=== PATIENT | male | born 1990 | race Caucasian/White ===

== ENCOUNTER 2019-11-10 18:18 | Emergency (ER) | payer BC, SELFPAY ==
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
[2019-11-10 18:21] VITALS: BP 153/80; PULSE 98; RESP 18; TEMP 36.9; O2SAT 98
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
[2019-11-10] MEDS: TETANUS,DIPHTHERIA,AC PERTUSSIS ADULT (0.5 ML) BOOSTRIX IM (20:14)
[2019-11-10 22:15] VITALS: BP 126/80; PULSE 74; RESP 19; O2SAT 98
== END 2019-11-10 22:15 | disposition home or self-care (01) ==
PROVIDERS: Emergency Provider Emergency Medicine
DX: S01.81XA Laceration without foreign body of other part of head, initial encounter (principal); M25.572 Pain in left ankle and joints of left foot; M79.641 Pain in right hand; Z23 Encounter for immunization; V28.4XXA Motorcycle driver injured in noncollision transport accident in traffic accident, initial encounter
CPT/HCPCS: 12052; 70486; 73130; 73564; 73610; 90471; 90715; 99284